=== PATIENT | female | born 1960 | race Hispanic/Latino ===

== ENCOUNTER → 2020-07-18 | Outpatient (CLI) | payer OTHER | END | disposition home or self-care (01) | LOC: OIH 13:46 | PROVIDERS: ATTEND Family Medicine | DX: M79.89 Other specified soft tissue disorders (principal); I63.9 Cerebral infarction, unspecified; R06.02 Shortness of breath; M18.30 Unilateral post-traumatic osteoarthritis of first carpometacarpal joint, unspecified hand | CPT/HCPCS: 73560 ==